=== PATIENT | male | born 1970 | race African-American/Black ===

== ENCOUNTER 2016-07-25 15:52 | Emergency (ER) | payer OTHER ==
[~2016-07-25] VITALS: Ht 172.7 cm; Wt 83.9 kg
--- NOTE | 2016-07-25 16:05 | EKG ---
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
--- NOTE | 2016-07-25 16:21 | PHYS DOC ---
Past Medical History Past Medical History: Diabetes-Type II, Hypertension Past Surgical History: Other Additional Past Surgical Histo: knee Alcohol Use: None Drug Use: None Adult General Chief Complaint Chief Complaint: Palpitations HPI HPI 45-year-old male presenting the emergency department with palpitations started today around 2:30 PM. He reports getting ready to get out of the house when he felt his heart rate fast. He denied chest pain diaphoresis. He denies nausea or vomiting. Otherwise he reports feeling generally well over the past 24-48 hours. He did have a cold last week that has resolved since. He denies any other symptoms. Onset today Location heart Duration intermittent No alleviating factors. Review of Systems Review of Systems Negative for chest pain shortness of breath nausea and diaphoresis. He denies abdominal pain fevers chills. All other review of systems is negative unless otherwise noted in history of present illness. Current Medications Current Medications Current Medications Medications (Trade) Dose Ordered Sig/Staci Start Time Stop Time Status Last Admin Dose Admin Insulin Human Regular (Novolin R Vial) 10 unit 1X ONCE 07/25/16 17:00 07/25/16 17:01 DC 07/25/16 17:11 10 UNIT Sodium Chloride (Iv Sodium Chloride 0.9% 1000ml Bag) 1,000 ml @ 1,000 mls/hr 1X ONCE 07/25/16 17:00 07/25/16 17:59 DC 07/25/16 17:03 1,000 MLS/HR Allergies Allergies Allergies Coded Allergies Type Severity Reaction Last Updated Verified No Known Drug Allergies 01/27/15 No Physical Exam Physical Exam Constitutional: Well developed, well nourished, no acute distress, non-toxic appearance. HENT: Normocephalic, atraumatic, bilateral external ears normal, oropharynx moist, no oral exudates, nose normal. Eyes: PERRLA, EOMI, conjunctiva normal, no discharge. [] Neck: Normal range of motion, no tenderness, supple, no stridor. Cardiovascular:Heart rate regular rhythm, no murmur Lungs & Thorax: Bilateral breath sounds clear to auscultation [] Abdomen: Bowel sounds normal, soft, no tenderness, no masses, no pulsatile masses. Skin: Warm, dry, no erythema, no rash. Back: No tenderness, no CVA tenderness. [] Extremities: No tenderness, no cyanosis, no clubbing, ROM intact, no edema. Neurologic: Alert and oriented X 3, normal motor function, normal sensory function, no focal deficits noted. Psychologic: Affect normal, judgement normal, mood normal. [] Current Patient Data Vital Signs Vital Signs Date Time Temp Pulse Resp B/P Pulse Ox O2 Delivery O2 Flow Rate FiO2 07/25/16 16:13 98.2 108 20 146/78 98 Room Air 98.2 Lab Values Laboratory Tests Test 07/25/16 16:31 White Blood Count 6.8x10^3/uL (4.0-11.0) Red Blood Count 5.72x10^6/uL (4.30-5.70) H Hemoglobin 16.5g/dL (13.0-17.5) Hematocrit 48.9% (39.0-53.0) Mean Corpuscular Volume 85fL (79-100) Mean Corpuscular Hemoglobin 29pg (25-35) Mean Corpuscular Hemoglobin Concent 34g/dL (31-37) Red Cell Distribution Width 12.3% (11.5-14.5) Platelet Count 175x10^3/uL (140-400) Neutrophils (%) (Auto) 63% (31-73) Lymphocytes (%) (Auto) 26% (24-48) Monocytes (%) (Auto) 8% (0-9) Eosinophils (%) (Auto) 2% (0-3) Basophils (%) (Auto) 1% (0-3) Neutrophils # (Auto) 4.3x10^3uL (1.8-7.7) Lymphocytes # (Auto) 1.8x10^3/uL (1.0-4.8) Monocytes # (Auto) 0.6x10^3/uL (0.0-1.1) Eosinophils # (Auto) 0.1x10^3/uL (0.0-0.7) Basophils # (Auto) 0.1x10^3/uL (0.0-0.2) Sodium Level 135mmol/L (136-145) L Potassium Level 4.2mmol/L (3.5-5.1) Chloride Level 98mmol/L (98-107) Carbon Dioxide Level 23mmol/L (21-32) Anion Gap 14 (6-14) Blood Urea Nitrogen 22mg/dL (8-26) Creatinine 1.5mg/dL (0.7-1.3) H Estimated GFR (Cockcroft-Gault) 61.0 Glucose Level 448mg/dL (70-99) H Serum Osmolality 306mOsm/Kg (279-304) H Calcium Level 9.0mg/dL (8.5-10.1) Total Bilirubin 1.0mg/dL (0.2-1.0) Direct Bilirubin 0.2mg/dL (0.0-0.2) Aspartate Amino Transferase (AST) 16U/L (15-37) Alanine Aminotransferase (ALT) 14U/L (16-63) L Alkaline Phosphatase 109U/L (46-116) Troponin I Quantitative < 0.017ng/mL (0.000-0.055) BQ-Zbs-M-Type Natriuretic Peptide 5pg/mL (0-124) Total Protein 7.4g/dL (6.4-8.2) Albumin 4.0g/dL (3.4-5.0) Lipase 188U/L (73-393) Laboratory Tests 07/25/16 16:31 Laboratory Tests 07/25/16 16:31 EKG EKG EKG shows sinus rhythm with a tachycardic rate. [place] is normal. Intervals are within normal limits. ST segments show mild less than 1 mm repolarization in lead V2 and V3 otherwise unremarkable. [] Radiology/Procedures Radiology/Procedures [facility] [address] [place] [address] IMAGING REPORT Signed PATIENT: MARY ALICE MARIN ACCOUNT: [id number] : 1970 LOCATION: ER AGE: 45 SEX: M EXAM STATUS: PRE ER ORD. PHYSICIAN: IBRAHIMA BHATT MD REASON: chest pain PROCEDURE: CHEST AP ONLY AP chest. History: Chest pain, short of air AP view was taken of the chest. There is a granuloma on the right. Lungs are clear. Heart is normal in size. There is no pleural effusion. Impression: 1. No acute chest disease. DICTATED and SIGNED BY: MARYJO MASSEY MD DATE: 07/25/16 0475 CC: IBRAHIMA BHATT MD; KAL BENITO MD ~ [] Course & Med Decision Making Course & Med Decision Making Pertinent Labs and Imaging studies reviewed. (See chart for details) 45-year-old male presenting with intermittent palpitations. EKG shows sinus tachycardia. Physical exam was otherwise unremarkable. Vital signs showed a normal respiratory rate mild hypertension afebrile. Blood work was obtained which showed an normal CBC chemistry panel showed hyperglycemia at 450. The patient really has a diagnosis of diabetes. Mild pseudohyponatremia present as well. He was given insulin for his hyperglycemia. No evidence of acidosis. Not confused. Serum osmolality just above the reference range of normal. On recheck of the patient's sugar his blood sugar was better around 200. He had received IV fluids in the emergency department which improved his tachycardia mildly. He was then subsequent discharged home with follow-up with his primary care physician tomorrow morning for outpatient management of his hyperglycemia. Dragon Disclaimer Dragon Disclaimer This electronic medical record was generated, in whole or in part, using a voice recognition dictation system. Departure Departure Impression: Primary Impression: Palpitation Additional Impression: Elevated blood sugar Disposition: HOME, SELF-CARE Condition: STABLE Referrals: KAL BENITO MD (PCP) Patient Instructions: Palpitations Additional Instructions: Thank you for allowing us to participate in your care today. Followup with your primary care physician tomorrow or the next day if your symptoms do not improve. You will need to check your blood sugar at least 3 times per day until then. It is important to get your blood sugar to a normal level. This is why follow up is important. If you do not have a primary care provider you can ask for a list of our primary care providers. Return to the emergency department you have any new or concerning findings. This should be evaluated by the primary care physician and any necessary consulting services for continued management within a few days after discharge. Return to emergency room if you have any new or concerning symptoms including but not limited to fever, chills, nausea, vomiting, intractable pain, any new rashes, chest pain, shortness of air, uncontrolled bleeding, difficulty breathing, and/or vision loss. Problem Qualifiers IBRAHIMA BHATT MD Jul 25, 2016 16:21
[2016-07-25 16:43] LABS: BASO # 0.1 x10^3/uL (0.0-0.2); BASO % 1 % (0-3); EOS % 2 % (0-3); HEMATOCRIT 48.9 % (39.0-53.0); HEMOGLOBIN 16.5 g/dL (13.0-17.5); LYMPH # 1.8 x10^3/uL (1.0-4.8); LYMPH % 26 % (24-48); MEAN CORPUSCULAR HEMOGLOBIN 29 pg (25-35); MEAN CORPUSCULAR HGB CONC 34 g/dL (31-37); MEAN CORPUSCULAR VOLUME 85 fL (79-100); MONO % 8 % (0-9); NEUT % 63 % (31-73); PLATELET COUNT 175 x10^3/uL (140-400); RED BLOOD COUNT 5.72 x10^6/uL (4.30-5.70); RED CELL DISTRIBUTION WIDTH 12.3 % (11.5-14.5); WHITE BLOOD COUNT 6.8 x10^3/uL (4.0-11.0)
--- NOTE | 2016-07-25 16:45 | RAD ---
AP chest. History: Chest pain, short of air AP view was taken of the chest. There is a granuloma on the right. Lungs are clear. Heart is normal in size. There is no pleural effusion. Impression: 1. No acute chest disease.
[2016-07-25 16:50] LABS: CREATININE 1.5 mg/dL (0.7-1.3); POTASSIUM 4.2 mmol/L (3.5-5.1)
[2016-07-25 16:56] LABS: DIRECT BILIRUBIN 0.2 mg/dL (0.0-0.2); TOTAL PROTEIN 7.4 g/dL (6.4-8.2)
[2016-07-25] MEDS ORDERED: INSULIN REGULAR 100 UNIT/ML 10ML VIAL. IV ONE (17:00)
[2016-07-25] MEDS ORDERED: IV NORMAL SALINE 1000ML BAG 1,000 ML IV ONE (17:00)
[2016-07-25 18:00] VITALS: BP 117/74
== END 2016-07-25 18:32 | disposition home or self-care (01) ==
LOC: ER 15:52
DX: R00.2 Palpitations (principal); E11.65 Type 2 diabetes mellitus with hyperglycemia; R00.0 Tachycardia, unspecified; I10 Essential (primary) hypertension
CPT/HCPCS: 36415; 71010; 80048; 80076; 83690; 83880; 83930; 84484; 85027; 93005; 96361; 96374; 99285; J1815; J7030; 82947

== ENCOUNTER 2018-11-23 04:04 | Emergency (ER) | payer OTHER ==
[~2018-11-23] VITALS: Ht 172.7 cm; Wt 74.8 kg
[2018-11-23 04:42] LABS: BASO # 0.1 x10^3/uL (0.0-0.2); BASO % 1 % (0-3); EOS % 0 % (0-3); HEMATOCRIT 47.8 % (39.0-53.0); HEMOGLOBIN 16.2 g/dL (13.0-17.5); LYMPH # 0.6 x10^3/uL (1.0-4.8); LYMPH % 4 % (24-48); MEAN CORPUSCULAR HEMOGLOBIN 29 pg (25-35); MEAN CORPUSCULAR HGB CONC 34 g/dL (31-37); MEAN CORPUSCULAR VOLUME 86 fL (79-100); MONO # 1.1 x10^3/uL (0.0-1.1); MONO % 8 % (0-9); NEUT # 12.5 x10^3uL (1.8-7.7); NEUT % 87 % (31-73); PLATELET COUNT 169 x10^3/uL (140-400); RED BLOOD COUNT 5.57 x10^6/uL (4.30-5.70); RED CELL DISTRIBUTION WIDTH 12.9 % (11.5-14.5); WHITE BLOOD COUNT 14.3 x10^3/uL (4.0-11.0)
[2018-11-23 04:42] LABS: BASE EXCESS ABG -1 mmol/L (-3-3); HCO3 ABG 23 mmol/L (21-28); PCO2 ABG 38 mmHg (35-46); PO2 ABG 73 mmHg (75-108); SAT O2 ABG 94 % (92-99)
[2018-11-23 04:43] LABS: FIO2 ABG 21
[2018-11-23 04:44] LABS: CALCIUM 10.8 mg/dL (8.5-10.1); CREATININE 1.5 mg/dL (0.7-1.3); GFR 60.2; POTASSIUM 4.9 mmol/L (3.5-5.1)
[2018-11-23 04:44] LABS: BILIRUBIN,URINE NEGATIVE (NEG); CLARITY,URINE CLEAR; COLOR,URINE YELLOW; NITRITE,URINE NEGATIVE (NEG); PH,URINE 5.5; PROTEIN,URINE NEGATIVE (NEG-TRACE); UROBILINOGEN,URINE 0.2 mg/dL (0.2 mg/dL)
[2018-11-23 04:50] LABS: ALBUMIN 4.3 g/dL (3.4-5.0); ALBUMIN/GLOBULIN RATIO 1.3 (1.0-1.7); TOTAL BILIRUBIN 1.9 mg/dL (0.2-1.0); TOTAL PROTEIN 7.6 g/dL (6.4-8.2)
[2018-11-23 04:52] LABS: BARBITURATES NEG (NEG); BENZODIAZEPINES NEG (NEG); CANNABINOIDS NEG (NEG); COCAINE NEG (NEG); METHADONE NEG (NEG); OPIATES NEG (NEG); PHENCYCLIDINE NEG (NEG)
[2018-11-23 04:53] LABS: AMPHETAMINE/METHAMPHETAMINE NEG (NEG)
[2018-11-23] MEDS ORDERED: INSULIN REGULAR 100 UNIT/ML 3ML VIAL. IV ONE (05:00)
[2018-11-23] MEDS ORDERED: IV NORMAL SALINE 1000ML BAG 1,000 ML IV SCH (05:00)
[2018-11-23] MEDS ORDERED: ONDANSETRON PF 4 MG/2 ML VIAL. IV ONE (05:00)
[2018-11-23] MEDS ORDERED: IV NORMAL SALINE 1000ML BAG 1,000 ML IV ONE (05:00)
[2018-11-23 05:06] LABS: RBC,URINE OCC /HPF (0-2)
[2018-11-23 05:07] LABS: BACTERIA,URINE 0 /HPF (0-FEW); SQUAMOUS EPITHELIAL CELL,UR OCC /LPF; WBC,URINE OCC /HPF (0-4)
[2018-11-23 05:34] LABS: % BANDS 12 % (0-9); % BASOS 1 % (0-3); % LYMPHS 7 % (24-48); % MONOS 5 % (0-10); % SEGS 75 % (35-66); PLT ESTIMATE ADEQUATE (ADEQUATE)
--- NOTE | 2018-11-23 06:02 | PHYS DOC ---
Past Medical History Past Medical History: Diabetes-Type II, Hypertension Past Surgical History: Other Additional Past Surgical Histo: knee Alcohol Use: None Drug Use: None Adult General Chief Complaint Chief Complaint: NAUSEA/VOMITING/DIARRHA HPI HPI Patient is a 48 year old male who presents with complaining of nausea and vomiting and diarrhea. Patient complaining of one episode of vomiting and 2 episodes of diarrhea with chronic abdominal pain since midnight. Patient said the abdominal pain resolved but decided he feels nauseous. Patient denies fever and chills, sick contact, dizziness, urinary symptom. Patient states he forgot to take his diabetic medications. Review of Systems Review of Systems Constitutional: Denies fever or chills [] Eyes: Denies change in visual acuity, redness, or eye pain [] HENT: Denies nasal congestion or sore throat [] Respiratory: Denies cough or shortness of breath [] Cardiovascular: No additional information not addressed in HPI [] GI: Reports abdominal pain, nausea, vomiting, diarrhea [] : Denies dysuria or hematuria [] Musculoskeletal: Denies back pain or joint pain [] Integument: Denies rash or skin lesions [] Neurologic: Denies headache, focal weakness or sensory changes [] Endocrine: Denies polyuria or polydipsia [] All other systems were reviewed and found to be within normal limits, except as documented in this note. Current Medications Current Medications Current Medications Medications (Trade) Dose Ordered Sig/[facility] Start Time Stop Time Status Last Admin Dose Admin Insulin Human Regular (HumuLIN R VIAL) 10 unit 1X ONCE 11/23/18 05:00 11/23/18 05:01 DC 11/23/18 04:35 10 UNIT Ondansetron HCl (Zofran) 4 mg 1X ONCE 11/23/18 05:00 11/23/18 05:01 DC 11/23/18 04:36 4 MG Sodium Chloride 1,000 ml @ 1,000 mls/hr 1X ONCE 11/23/18 05:00 11/23/18 05:59 11/23/18 04:36 1,000 MLS/HR Allergies Allergies Allergies Coded Allergies Type Severity Reaction Last Updated Verified No Known Drug Allergies 01/27/15 No Physical Exam Physical Exam Constitutional: Well developed, well nourished, mild distress, non-toxic appearance. [] HENT: Normocephalic, atraumatic, oropharynx dry, no oral exudates, nose normal. [] Eyes: PERRLA, EOMI, conjunctiva normal, no discharge. [] Neck: Normal range of motion, no tenderness, supple, no stridor. [] Cardiovascular: Tachycardia, no murmur [] Lungs & Thorax: Bilateral breath sounds clear to auscultation [] Abdomen: Bowel sounds normal, soft, no tenderness, no masses, no pulsatile masses. [] Skin: Warm, dry, no erythema, no rash. [] Back: No tenderness, no CVA tenderness. [] Extremities: No tenderness, no cyanosis, no clubbing, ROM intact, no edema. [] Neurologic: Alert and oriented X 3, normal motor function, normal sensory function, no focal deficits noted. [] Psychologic: Affect normal, judgement normal, mood normal. [] Current Patient Data Vital Signs Vital Signs Date Time Temp Pulse Resp B/P (MAP) Pulse Ox O2 Delivery O2 Flow Rate FiO2 11/23/18 04:05 98.2 113 16 127/70 (89) 96 Room Air 98.2 Lab Values Laboratory Tests Test 11/23/18 04:19 11/23/18 04:25 11/23/18 04:37 11/23/18 04:40 Glucose (Fingerstick) 477 mg/dL (70-99) H White Blood Count 14.3 x10^3/uL (4.0-11.0) H Red Blood Count 5.57 x10^6/uL (4.30-5.70) Hemoglobin 16.2 g/dL (13.0-17.5) Hematocrit 47.8 % (39.0-53.0) Mean Corpuscular Volume 86 fL (79-100) Mean Corpuscular Hemoglobin 29 pg (25-35) Mean Corpuscular Hemoglobin Concent 34 g/dL (31-37) Red Cell Distribution Width 12.9 % (11.5-14.5) Platelet Count 169 x10^3/uL (140-400) Neutrophils (%) (Auto) 87 % (31-73) H Lymphocytes (%) (Auto) 4 % (24-48) L Monocytes (%) (Auto) 8 % (0-9) Eosinophils (%) (Auto) 0 % (0-3) Basophils (%) (Auto) 1 % (0-3) Neutrophils # (Auto) 12.5 x10^3uL (1.8-7.7) H Lymphocytes # (Auto) 0.6 x10^3/uL (1.0-4.8) L Monocytes # (Auto) 1.1 x10^3/uL (0.0-1.1) Eosinophils # (Auto) 0.0 x10^3/uL (0.0-0.7) Basophils # (Auto) 0.1 x10^3/uL (0.0-0.2) Segmented Neutrophils % 75 % (35-66) H Band Neutrophils % 12 % (0-9) H Lymphocytes % 7 % (24-48) L Monocytes % 5 % (0-10) Basophils % 1 % (0-3) Platelet Estimate Adequate (ADEQUATE) Large Platelets Occ Sodium Level 131 mmol/L (136-145) L Potassium Level 4.9 mmol/L (3.5-5.1) Chloride Level 93 mmol/L (98-107) L Carbon Dioxide Level 29 mmol/L (21-32) Anion Gap 9 (6-14) Blood Urea Nitrogen 19 mg/dL (8-26) Creatinine 1.5 mg/dL (0.7-1.3) H Estimated GFR (Cockcroft-Gault) 60.2 BUN/Creatinine Ratio 13 (6-20) Glucose Level 481 mg/dL (70-99) H Lactic Acid Level 1.9 mmol/L (0.4-2.0) Calcium Level 10.8 mg/dL (8.5-10.1) H Magnesium Level 1.7 mg/dL (1.8-2.4) L Total Bilirubin 1.9 mg/dL (0.2-1.0) H Aspartate Amino Transferase (AST) 19 U/L (15-37) Alanine Aminotransferase (ALT) 22 U/L (16-63) Alkaline Phosphatase 126 U/L (46-116) H Total Protein 7.6 g/dL (6.4-8.2) Albumin 4.3 g/dL (3.4-5.0) Albumin/Globulin Ratio 1.3 (1.0-1.7) Lipase 75 U/L (73-393) Acetone Level Neg (NEG) Urine Collection Type Unknown Urine Color Yellow Urine Clarity Clear Urine pH 5.5 Urine Specific [place] >=1.030 Urine Protein Negative mg/dL (NEG-TRACE) Urine Glucose (UA) >=1000 mg/dL (NEG) Urine Ketones (Stick) 15 mg/dL (NEG) Urine Blood Negative (NEG) Urine Nitrite Negative (NEG) Urine Bilirubin Negative (NEG) Urine Urobilinogen Dipstick 0.2 mg/dL (0.2 mg/dL) Urine Leukocyte Esterase Negative (NEG) Urine RBC Occ /HPF (0-2) Urine WBC Occ /HPF (0-4) Urine Squamous Epithelial Cells Occ /LPF Urine Bacteria 0 /HPF (0-FEW) Urine Opiates Screen Neg (NEG) Urine Methadone Screen Neg (NEG) Urine Barbiturates Neg (NEG) Urine Phencyclidine Screen Neg (NEG) Urine Amphetamine/Methamphetamine Neg (NEG) Urine Benzodiazepines Screen Neg (NEG) Urine Cocaine Screen Neg (NEG) Urine Cannabinoids Screen Neg (NEG) Urine Ethyl Alcohol Neg (NEG) O2 Saturation 94 % (92-99) Arterial Blood pH 7.41 (7.35-7.45) Arterial Blood pCO2 at Patient Temp 38 mmHg (35-46) Arterial Blood pO2 at Patient Temp 73 mmHg (75-108) L Arterial Blood HCO3 23 mmol/L (21-28) Arterial Blood Base Excess -1 mmol/L (-3-3) FiO2 21 Test 11/23/18 05:06 Glucose (Fingerstick) 462 mg/dL (70-99) H Laboratory Tests 11/23/18 04:25 Laboratory Tests 11/23/18 04:25 EKG EKG [] Radiology/Procedures Radiology/Procedures [] Course & Med Decision Making Course & Med Decision Making Pertinent Labs and Imaging studies pending. Evaluation of patient in ER showed 48-year-old male patient with history of diabetes presented to ER with nausea and vomiting and diarrhea. Patient had tachycardia and dry oral mucosa elevation of blood sugar more than 400. Patient treated with IV fluid and bolus of insulin. White count was elevated. CT abdomen and pelvis is pending. Patient did not have sign of DKA. Patient care transferred to at 0600. Dragon Disclaimer Dragon Disclaimer This electronic medical record was generated, in whole or in part, using a voice recognition dictation system. Departure Departure Impression: Primary Impression: Acute gastroenteritis Additional Impressions: Hyperglycemia Renal insufficiency Leukocytosis Referrals: KAL BENITO MD (PCP) Problem Qualifiers EARLINE RETANA MD November 23, 2018 06:01
--- NOTE | 2018-11-23 06:11 | RAD ---
Examination: CT of the abdomen pelvis without contrast HISTORY: History of nausea, vomiting, abdominal pain COMPARISON: None TECHNIQUE: Axial CT images of the abdomen pelvis were performed without contrast. Coronal and sagittal reformats are performed Exposure: One or more of the following individualized dose reduction techniques were utilized for this examination: 1. Automated exposure control 2. Adjustment of the mA and/or kV according to patient size 3. Use of iterative reconstruction technique FINDINGS: Patchy airspace opacities identified in the left lung base likely pneumonia or atelectasis. Calcified granuloma identified in the right lower lobe of the lung. No evidence of free air identified in the abdomen. The visualized noncontrasted liver, spleen, adrenals grossly appears unremarkable. The evaluation of the solid organs is limited due to lack of IV contrast. The evaluation of bowel is limited due to lack of oral contrast. The visualized pancreas grossly appears unremarkable. The small bowel is nondilated. Appendix is normal. Feces and gas noted in the colon. Urinary bladder is mildly distended. There is mild fat stranding identified about the bilateral kidneys. Mild degenerative changes lumbar spine. IMPRESSION: 1. Mild fat stranding identified about the bilateral kidneys, nonspecific. Underlying urinary tract infection such as pyelonephritis is not excluded. 2. Patchy airspace opacities identified in the left lung base likely pneumonia or atelectasis. Electronically signed by: Lalit Suarez MD (11/23/2018 6:08 AM) [facility]
[2018-11-23 06:54] VITALS: BP 129/55
[2018-11-23] MEDS ORDERED: CEFD300C PO (07:05)
== END 2018-11-23 07:20 | disposition home or self-care (01) ==
LOC: ER 04:04
DX: K52.9 Noninfective gastroenteritis and colitis, unspecified (principal); J18.9 Pneumonia, unspecified organism; E11.65 Type 2 diabetes mellitus with hyperglycemia; N28.9 Disorder of kidney and ureter, unspecified; D72.829 Elevated white blood cell count, unspecified; I10 Essential (primary) hypertension
CPT/HCPCS: 36415; 36600; 74176; 80053; 80307; 81001; 82010; 82805; 82962; 83605; 83690; 83735; 85007; 85025; 96361; 96374; 96375; 99285; J1815; J2405; J7030

== ENCOUNTER 2020-11-26 02:05 | Emergency (ER) | payer OTHER ==
[~2020-11-26] VITALS: Ht 172.7 cm; Wt 77.0 kg
[~2020-11-26 02:05] MED LIST: CEFD300C PO
--- NOTE | 2020-11-26 02:09 | PHYS DOC ---
Past Medical History Past Medical History: Diabetes-Type II, Hypertension Past Surgical History: Other Additional Past Surgical Histo: knee Smoking Status: Never Smoker Alcohol Use: None Drug Use: None General Adult EDM: Chief Complaint: WEAKNESS/GENERALIZED HPI: HPI: Patient is a 50-year-old male presenting for generalized weakness. Reports this is a chronic issue. Nothing known makes better or worse. Denies being in any pain. Timing of symptoms is constant without any identifiable time of onset. Reports having primary care physician but has not been there in a while. No sick contacts, fever or other symptoms besides generalized malaise today Review of Systems: Review of Systems: Fourteen body systems of review of systems have been reviewed. See HPI for pertinent positives and negative responses, other bishop all other systems are negative, non-pertinent or non-contributory Heart Score: C/O Chest Pain: No HEART Score for Chest Pain: HEART Score for Chest Pain Response (Comments) Value History Slighlty/Non-Suspicious 0 ECG Normal 0 Age >45 - < 65 1 Risk Factors 1 or 2 Risk Factors 1 Troponin < Normal Limit 0 Total 2 Risk Factors: Risk Factors: DM, Current or recent (<one month) smoker, HTN, HLP, family history of CAD, obesity. Risk Scores: Score 0 - 3: 2.5% MACE over next 6 weeks - Discharge Home Score 4 - 6: 20.3% MACE over next 6 weeks - Admit for Clinical Observation Score 7 - 10: 72.7% MACE over next 6 weeks - Early Invasive Strategies Allergies: Allergies: Allergies Coded Allergies Type Severity Reaction Last Updated Verified No Known Drug Allergies 01/27/15 No Physical Exam: PE: Constitutional: Well developed, well nourished, no acute distress, non-toxic appearance. HENT: Normocephalic, atraumatic, bilateral external ears normal, oropharynx moist, no oral exudates, nose normal. Eyes: PERRLA, EOMI, conjunctiva normal, no discharge. Neck: Normal range of motion, no tenderness, supple, no stridor. Cardiovascular: Heart rate regular, sinus rhythm, no murmurs rubs or gallops Lungs & Thorax: Bilateral breath sounds clear to auscultation Abdomen: Bowel sounds normal, soft, no tenderness, no masses, no pulsatile masses. Nonsurgical abdomen, no peritoneal signs Skin: Warm, dry, no erythema, no rash. Back: No tenderness, no CVA tenderness. Extremities: No tenderness, no cyanosis, no clubbing, ROM intact, no edema. Neurologic: Alert and oriented X 3, grossly normal motor & sensory function, no focal deficits noted. Psychologic: Affect normal, judgement normal, mood normal. Current Patient Data: Labs: Laboratory Tests Test 11/26/20 02:11 11/26/20 02:45 Glucose (Fingerstick) 250 mg/dL White Blood Count 5.1 x10^3/uL Red Blood Count 4.63 x10^6/uL Hemoglobin 14.3 g/dL Hematocrit 40.9 % Mean Corpuscular Volume 89 fL Mean Corpuscular Hemoglobin 31 pg Mean Corpuscular Hemoglobin Concent 35 g/dL Red Cell Distribution Width 12.4 % Platelet Count 191 x10^3/uL Neutrophils (%) (Auto) 54 % Lymphocytes (%) (Auto) 31 % Monocytes (%) (Auto) 11 % Eosinophils (%) (Auto) 3 % Basophils (%) (Auto) 1 % Neutrophils # (Auto) 2.8 x10^3/uL Lymphocytes # (Auto) 1.6 x10^3/uL Monocytes # (Auto) 0.6 x10^3/uL Eosinophils # (Auto) 0.1 x10^3/uL Basophils # (Auto) 0.0 x10^3/uL Sodium Level 140 mmol/L Potassium Level 4.9 mmol/L Chloride Level 105 mmol/L Carbon Dioxide Level 25 mmol/L Anion Gap 10 Blood Urea Nitrogen 17 mg/dL Creatinine 1.4 mg/dL Estimated GFR (Cockcroft-Gault) 64.6 Glucose Level 304 mg/dL Calcium Level 8.5 mg/dL Troponin I Quantitative < 0.017 ng/mL Vital Signs: Vital Signs Date Time Temp Pulse Resp B/P (MAP) Pulse Ox O2 Delivery O2 Flow Rate FiO2 11/26/20 02:09 92 179/86 (117) Room Air 11/26/20 02:10 98.4 20 97 98.4 Vital Signs Date Time Temp Pulse Resp B/P (MAP) Pulse Ox O2 Delivery O2 Flow Rate FiO2 11/26/20 04:06 90 128/70 (89) 99 Room Air 11/26/20 02:10 98.4 20 98.4 EKG: EKG: EKG ordered and interpreted by myself at 0225 hrs. as sinus rhythm at 92 bpm, unremarkable intervals, no axis deviation, no ischemic findings, no STEMI Radiology/Procedures: Radiology/Procedures: [] Course & Med Decision Making: Course & Med Decision Making Patient initially hypertensive otherwise hemodynamically stable with nonconcerning HPI, physical exam and ER work-up. Discussed that patient's hypertension might be contributing to his overall weakness. I discussed potential for sleep apnea, vitamin deficiencies and other conditions that could be causing his symptoms. I reviewed entirety of ER findings today that were nonconcerning for any emergent disease process. I discussed little indication for further diagnostic work-up. I advised him to contact his primary care physician first thing in the morning to review ER visit and continue work-up on his complaints that are chronic and appear nonlife-threatening at present. Strict return precautions were discussed with good understanding by patient, all questions and concerns addressed prior to your departure Dragon Disclaimer: Dragon Disclaimer: This electronic medical record was generated, in whole or in part, using a voice recognition dictation system. Departure Departure Impression: Primary Impression: Weakness Disposition: 01 HOME / SELF CARE / HOMELESS Condition: STABLE Referrals: KAL BENITO MD (PCP) Additional Instructions: As discussed prior to ER departure, your physical exam and comprehensive ER work-up was nonconcerning for any emergent or surgical findings. Your blood pressure was initially elevated on arrival but this improved without any intervention. As discussed, it is recommended that you keep a dedicated blood pressure log and contact your primary care physician next immediate business day to review ER visit and need for close outpatient follow-up for continuity of care and review of blood pressure log. If any concerning signs or symptoms present prior to outpatient follow-up please do not hesitate to come back for repeat evaluation. It was a pleasure to take care of you and I wish you the best going forward MONY MARR DO November 26, 2020 02:09
[2020-11-26 02:54] LABS: BASO % 1 % (0-3); EOS # 0.1 x10^3/uL (0.0-0.7); EOS % 3 % (0-3); HEMATOCRIT 40.9 % (39.0-53.0); HEMOGLOBIN 14.3 g/dL (13.0-17.5); LYMPH # 1.6 x10^3/uL (1.0-4.8); LYMPH % 31 % (24-48); MEAN CORPUSCULAR HEMOGLOBIN 31 pg (25-35); MEAN CORPUSCULAR HGB CONC 35 g/dL (31-37); MEAN CORPUSCULAR VOLUME 89 fL (79-100); MONO # 0.6 x10^3/uL (0.0-1.1); MONO % 11 % (0-9); NEUT # 2.8 x10^3/uL (1.8-7.7); NEUT % 54 % (31-73); PLATELET COUNT 191 x10^3/uL (140-400); RED BLOOD COUNT 4.63 x10^6/uL (4.30-5.70); RED CELL DISTRIBUTION WIDTH 12.4 % (11.5-14.5); WHITE BLOOD COUNT 5.1 x10^3/uL (4.0-11.0)
[2020-11-26 03:04] LABS: CALCIUM 8.5 mg/dL (8.5-10.1); CREATININE 1.4 mg/dL (0.7-1.3); GFR 64.6; POTASSIUM 4.9 mmol/L (3.5-5.1)
[2020-11-26 04:06] VITALS: BP 128/70
--- NOTE | 2020-11-26 08:18 | EKG ---
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
== END 2020-11-26 04:07 | disposition home or self-care (01) ==
LOC: ER 02:05
DX: R53.1 Weakness (principal); E11.9 Type 2 diabetes mellitus without complications; I10 Essential (primary) hypertension
CPT/HCPCS: 36415; 80048; 82962; 84484; 85025; 93005; 99285-25